=== PATIENT | male | born 1985 | race Two or more races ===

== ENCOUNTER 2016-12-06 10:51 | Emergency (ER) | payer OTHER ==
--- NOTE | 2016-12-06 11:21 | ER Document Report ---
ED Medical Screen (RME) - General Stated Complaint: FELL/BACK PAIN Notes: patient fell off a two story house c/o shortness of breath, chest pain, left leg pain. A: Airway clear, patient able to talk B: Breathing labored. Bilateral breath sounds clear to auscultation C: Radial pulses are palpable and normal bilaterally D: GCS 15 E: Patient in wheel chair in triage Case discussed with charge and sent directly to [facility] bed for trauma evaluation I have greeted and performed a rapid initial assessment of this patient. A comprehensive ED assessment and evaluation of the patient, analysis of test results and completion of the medical decision making process will be conducted by additional ED providers. TRAVEL OUTSIDE OF THE [place] IN LAST 30 DAYS: No - Related Data Allergies/Adverse Reactions: No Known Allergies Allergy (Verified 12/06/16 11:15)
--- NOTE | 2016-12-06 11:40 | ER Document Report ---
ED General - General Chief Complaint: Fall Injury Stated Complaint: FELL/BACK PAIN Time seen by provider: 11:30 Mode of Arrival: Wheelchair Information source: Patient Notes: 31-year-old male states he was working on a roof and slipped. Patient says he was between 30 and 40 feet high when went off the roof and says he landed on both feet and then fell for. He denies a loss of consciousness. He reports this occurred within an hour of arrival. Last meal was about 7 AM. He reports he does not recently been ill with anything. He currently complains primarily of pain in the left ankle and foot and also complains about some sharp pain in the midsternal region with movement or deep breathing. He denies headache, neck pain, back pain, abdominal pain, numbness weakness to any extremity, pain upper extremities, or pain of the right lower extremity. He denies shortness of breath other than pain from deep breathing, and denies any nausea or vomiting. Physical Exam: General: Alert, appears well. HEENT: Normocephalic. Atraumatic. PERRLA. Extraocular movements intact. No otorhinorrhea bite normal Oropharynx clear. Neck: Supple. Non-tender. Full range of motion without discomfort no bony deformities palpated Respiratory: No respiratory distress. Clear and equal breath sounds bilaterally. Midsternal region is tender to palpation no lesions are noted he also has discomfort palpation over the left lower chest anteriorly which also reproduces patient's pain Cardiovascular: Regular rate and rhythm. Abdominal: Normal Inspection. Soft, non-tender. No distension. Normal Bowel Sounds. No guarding rebound rigidity Back: Non-tender. No deformity or step off. Bony deformities palpated Extremities: Moves all four extremities. Upper extremities: Normal inspection. Non-tender. Normal color. Normal ROM. Normal temperature. Lower extremities: Right lower extremity has full range of motion without discomfort or abnormality Left lower extremity has tenderness to palpation diffusely to the left ankle and foot and the lower tib-fib region. Point of maximal tenderness is the medial malleolus and the anterior medial ankle Patient has brisk capillary refill to all toes and dorsalis pedis and posterior tibial pulses. Patient has good range of motion without discomfort at the knee and hip on the left. Neurological: Cranial nerves III-XII grossly intact bilaterally. Strength 5/5 throughout with the exception of the area of the left ankle and foot which can' t be assessed due to pain. Sensation intact to light touch. Normal cognition. AAOx4. Normal speech. Psychological: Normal affect. Normal Mood. Skin: Warm. Dry. Normal color. TRAVEL OUTSIDE OF THE [place] IN LAST 30 DAYS: No - Related Data Allergies/Adverse Reactions: No Known Allergies Allergy (Verified 12/06/16 11:15) Past Medical History - Social History Smoking Status: Current Every Day Smoker Chew tobacco use (# tins/day): No Frequency of alcohol use: None Drug Abuse: None Family History: Hyperlipidemia, Malignancy Patient has suicidal ideation: No Patient has homicidal ideation: No Renal/ Medical History: Denies: Hx Peritoneal Dialysis Review of Systems - Review of Systems Constitutional: denies: Chills, Fever EENT: denies: Ear pain, Throat pain Cardiovascular: See HPI Respiratory: Short of breath. denies: Cough Gastrointestinal: denies: Abdominal pain, Nausea, Vomiting Genitourinary: denies: Burning, Dysuria Musculoskeletal: See HPI Skin: denies: Rash Hematologic/Lymphatic: denies: Swollen glands Neurological/Psychological: denies: Weakness, Numbness Physical Exam - Vital signs Vitals: Temp Pulse Resp BP Pulse Ox 98.1 F 94 20 144/71 H 96 12/06/16 11:49 12/06/16 11:49 12/06/16 11:49 12/06/16 11:49 12/06/16 11:49 Course - Re-evaluation Re-evalutation: 12/06/16 13:17 Patient is remained stable during stay in the department with no worsening shortness of breath or chest pain. Did not identify sternal fracture or pneumothorax on his x-ray. Cortical irregularity on the distal tibia noted on the ankle films I think corresponds to the patient's maximal tenderness and a believe does represent an acute fracture. He'll be placed in posterior splint and crutches and referred to orthopedics for follow-up. Reexamination of the left lower extremity again shows strong peripheral pulses brisk capillary refill no swelling tenseness or ecchymosis in the left lower extremity to suggest compartment syndrome. 12/06/16 13:31 I do note that the patient's stable vital signs and lack of any definite injury other than the ankle fracture suggests that the patient is overestimating the height from which he fell - Vital Signs Vital signs: Temp Pulse Resp BP Pulse Ox 98.1 F 94 20 144/71 H 96 12/06/16 11:49 12/06/16 11:49 12/06/16 11:49 12/06/16 11:49 12/06/16 11:49 - Diagnostic Test Radiology reviewed: Image reviewed, Reports reviewed Discharge - Discharge Clinical Impression: Ankle fracture Qualifiers: Encounter type: initial encounter Fracture type: closed Laterality: left Qualified Code(s): S82.892A - Other fracture of left lower leg, initial encounter for closed fracture Condition: Stable Disposition: HOME, SELF-CARE Additional Instructions: Fracture You have a fracture. The typical broken bone requires only protection and sufficient time for healing. "Setting" is necessary only if the bones are crooked or out of position. The physician will re-assess you periodically to make certain that the bone heals without complications. It's important that you follow the instructions given you. The initial treatment is immobilization, elevation of the injury, and cold packs. Not all fractures require a cast. Depending on the location and type of fracture, immobilization may consist of a splint, cast, sling, bulky dressing , or simply rest. The length of time required for healing depends on the location and type of fracture, and on the age of the patient. The treatment plan the physician has outlined for you is customized to your fracture and health condition. Call the doctor or return at once if pain becomes severe, or if severe swelling or numbness develop. Prescriptions: Oxycodone HCl/Acetaminophen [Percocet 5-325 mg Tablet] 1 tab PO Q4H PRN #30 tablet PRN Reason: Severe Pain Referrals: PAUL ZAPATA MD [ACTIVE STAFF] - Follow up in 3-5 days
[2016-12-06] MEDS ORDERED: MORPHINE SULFATE 10 MG/ML INJ IV ONE (12:58)
[2016-12-06 14:08] VITALS: BP 133/72
== END 2016-12-06 14:08 | disposition home or self-care (01) ==
LOC: ER 10:51
DX: S82.892A Other fracture of left lower leg, initial encounter for closed fracture (principal); R07.89 Other chest pain; F17.200 Nicotine dependence, unspecified, uncomplicated; W13.2XXA Fall from, out of or through roof, initial encounter; Y93.H3 Activity, building and construction; Y99.0 Civilian activity done for income or pay
CPT/HCPCS: 99284; 96374; 73610; 71020; 73630; 73590; J2270

== ENCOUNTER 2016-12-10 10:29 | Emergency (ER) | payer OTHER ==
[2016-12-10 10:38] VITALS: BP 150/75
--- NOTE | 2016-12-10 11:20 | ER Document Report ---
ED Medical Screen (RME) - General Stated Complaint: ANKLE PAIN Time seen by provider: 11:20 Mode of Arrival: Ambulatory Information source: Patient Notes: 31-year-old male complaining of left ankle pain. He is using crutches. He came last and it is fractured. Ran out of pain medicine because it hurts so bad and he can't see the specialty doctor until Saturday at 3 PM. I have greeted and performed a rapid initial assessment of this patient. A comprehensive ED assessment, evaluation of the patient, analysis of test results , and completion of the medical decision making process will be contacted by additional ED providers. TRAVEL OUTSIDE OF THE [place] IN LAST 30 DAYS: No - Related Data Allergies/Adverse Reactions: No Known Allergies Allergy (Verified 12/10/16 11:20) Past Medical History Renal/ Medical History: Denies: Hx Peritoneal Dialysis Physical Exam - Vital signs Vitals: Temp Pulse Resp BP Pulse Ox 97.7 F 89 18 150/75 H 100 12/10/16 10:37 12/10/16 10:37 12/10/16 10:37 12/10/16 10:37 12/10/16 10:37 Course - Vital Signs Vital signs: Temp Pulse Resp BP Pulse Ox 97.7 F 89 18 150/75 H 100 12/10/16 10:37 12/10/16 10:37 12/10/16 10:37 12/10/16 10:37 12/10/16 10:37
[2016-12-10] MEDS ORDERED: OXYCODONE-ACETAMINOPHEN 5-325 MG TABLET PO ONE (11:23)
[2016-12-10] MEDS ORDERED: ONDANSETRON 4 MG TAB.RAPDIS PO ONE (11:24)
--- NOTE | 2016-12-10 12:26 | ER Document Report ---
ED General - General Chief Complaint: Ankle Pain Stated Complaint: ANKLE PAIN Time seen by provider: 12:21 Mode of Arrival: Ambulatory Information source: Patient Notes: 31-year-old male status post recent left ankle fracture after fall has an appointment with orthopedics in 2 days but has run out of pain medicine. Patient had a fall off a roof and on his initial presentation was having anterior chest pain but he reports that pain is better now does have diffuse aches and pains in various locations he says since the fall and occasional nausea but no vomiting. He denies shortness of breath, fever, chills and denies numbness weakness to any extremity. He has intended pain in the left ankle and the side of his initial discomfort but is not having pain elsewhere in the left lower extremity. Physical Exam: General: Alert, appears well. HEENT: Normocephalic. Atraumatic. PERRLA. Extraocular movements intact. Oropharynx clear. Neck: Supple. Good range of motion without discomfort no deformities palpated Respiratory: No respiratory distress. Clear and equal breath sounds bilaterally. Not tender to palpation Cardiovascular: Regular rate and rhythm. Abdominal: Normal Inspection. Soft, non-tender. No distension. Normal Bowel Sounds. Back: Non-tender. No deformity or step off. Patient has brisk capillary refill toes on the left with palpable dorsalis pedis and posterior tibial pulses to. Continues to have pain to the anterior and medial portions of the left ankle. Edematous wrist good range of motion at the knee and hip. Other extremities have good range of motion without discomfort Neurological: Speech clear mentation normal moves all 4 extremities well Psychological: Normal affect. Normal Mood. Skin: Warm. Dry. Normal color. TRAVEL OUTSIDE OF THE [place] IN LAST 30 DAYS: No - Related Data Allergies/Adverse Reactions: No Known Allergies Allergy (Verified 12/10/16 11:20) Past Medical History - General Information source: Patient - Social History Smoking Status: Current Every Day Smoker Chew tobacco use (# tins/day): Yes Family History: Hyperlipidemia, Malignancy Patient has suicidal ideation: No Patient has homicidal ideation: No Renal/ Medical History: Denies: Hx Peritoneal Dialysis Review of Systems - Review of Systems Constitutional: denies: Chills, Fever EENT: denies: Ear pain, Throat pain Cardiovascular: See HPI Respiratory: denies: Cough, Short of breath Gastrointestinal: Nausea. denies: Abdominal pain Genitourinary: denies: Burning Musculoskeletal: denies: Back pain Hematologic/Lymphatic: denies: Swollen glands Neurological/Psychological: denies: Weakness, Numbness Physical Exam - Vital signs Vitals: Temp Pulse Resp BP Pulse Ox 97.7 F 89 18 150/75 H 100 12/10/16 10:37 12/10/16 10:37 12/10/16 10:37 12/10/16 10:37 12/10/16 10:37 Course - Re-evaluation Re-evalutation: 12/10/16 12:23 Patient be given refill for Percocet to cover the next 2 days until he sees his orthopedist. He will continue with use of crutches and splint - Vital Signs Vital signs: Temp Pulse Resp BP Pulse Ox 97.7 F 89 18 150/75 H 100 12/10/16 10:37 12/10/16 10:37 12/10/16 10:37 12/10/16 10:37 12/10/16 10:37 Discharge - Discharge Clinical Impression: Closed left ankle fracture Qualifiers: Encounter type: subsequent encounter Fracture healing: with routine healing Qualified Code(s): S82.892D - Other fracture of left lower leg, subsequent encounter for closed fracture with routine healing Condition: Stable Disposition: HOME, SELF-CARE Additional Instructions: Fracture You have a fracture. The typical broken bone requires only protection and sufficient time for healing. "Setting" is necessary only if the bones are crooked or out of position. The physician will re-assess you periodically to make certain that the bone heals without complications. It's important that you follow the instructions given you. The initial treatment is immobilization, elevation of the injury, and cold packs. Not all fractures require a cast. Depending on the location and type of fracture, immobilization may consist of a splint, cast, sling, bulky dressing , or simply rest. The length of time required for healing depends on the location and type of fracture, and on the age of the patient. The treatment plan the physician has outlined for you is customized to your fracture and health condition. Call the doctor or return at once if pain becomes severe, or if severe swelling or numbness develop. Prescriptions: Oxycodone HCl/Acetaminophen [Percocet 5-325 mg Tablet] 1 tab PO Q6H PRN #15 tablet PRN Reason: For Pain Referrals: PAUL ZAPATA MD [ACTIVE STAFF] - 12/12/16
== END 2016-12-10 12:49 | disposition home or self-care (01) ==
LOC: ER 10:29
DX: S82.892D Other fracture of left lower leg, subsequent encounter for closed fracture with routine healing (principal); W13.2XXD Fall from, out of or through roof, subsequent encounter; M25.572 Pain in left ankle and joints of left foot; R11.0 Nausea; F17.200 Nicotine dependence, unspecified, uncomplicated
CPT/HCPCS: 99281; S0119

== ENCOUNTER 2017-04-03 12:27 | Emergency (ER) | payer MEDICAID, OTHER ==
--- NOTE | 2017-04-03 14:07 | ER Document Report ---
HPI - HPI Pain Level: 4 Context: Patient is a 31yo male who presents to the ED c/o chronic left ankle pain since his fracture in Nov 2016. The pain does not radiate. Pt states that he was in a cast for 8 weeks and then had physical therapy thereafter. Pt states that the physical therapy was helping, but he ran out of allowed visits with his worker's comp. Pt states that he has been having the same chronic pain in his left ankle since then (1-2mos) without any new injury. Pt states that ambulation makes his pain worse. He has not had any otc meds for his symptoms otherwise. Pt does not have a PCM. Daily smoker. Pt is no longer seeing ortho at this time. No other concerns or complaints. No fever, URI symptoms, CP, sob , dyspnea, abd pain, n/v, dysuria, numbness/tingling, or rash. - ROS Notes: REVIEW OF SYSTEMS: CONSTITUTIONAL : Denies fever, chills, or sweats. Denies recent illness. EENT: Denies eye, ear, throat, or mouth pain or symptoms. Denies nasal or sinus congestion or discharge. Denies throat, tongue, or mouth swelling or difficulty swallowing. CARDIOVASCULAR: Denies chest pain. Denies palpitations or racing or irregular heart beat. Denies ankle edema. RESPIRATORY: Denies cough, cold, or chest congestion. Denies shortness of breath, difficulty breathing, or wheezing. GASTROINTESTINAL: Denies abdominal pain or distention. Denies nausea, vomiting , or diarrhea. Denies blood in vomitus, stools, or per rectum. Denies black, tarry stools. Denies constipation. GENITOURINARY: Denies difficulty urinating, painful urination, burning, frequency, blood in urine, or discharge. MUSCULOSKELETAL: see hpi. SKIN: Denies rash, lesions or sores. HEMATOLOGIC : Denies easy bruising or bleeding. LYMPHATIC: Denies swollen, enlarged glands. Neuro: see hpi ALL OTHER SYSTEMS REVIEWED AND NEGATIVE. Dictation was performed using [email or web address] voice recognition software - CARDIOVASCULAR Cardiovascular: DENIES: Chest pain - DERM Skin Color: Normal Past Medical History - Social History Smoking Status: Current Every Day Smoker Chew tobacco use (# tins/day): No Frequency of alcohol use: Occasional Drug Abuse: None Family History: Hyperlipidemia, Malignancy Patient has suicidal ideation: No Patient has homicidal ideation: No Renal/ Medical History: Denies: Hx Peritoneal Dialysis Vertical Provider Document - CONSTITUTIONAL Notes: PHYSICAL EXAMINATION: GENERAL: Well-appearing, well-nourished and in no acute distress. LUNGS: Breath sounds clear to auscultation bilaterally and equal. No wheezes rales or rhonchi. HEART: Regular rate and rhythm without murmurs, rubs, gallops. ABDOMEN: Soft, nontender, nondistended abdomen. No guarding, no rebound. No masses appreciated. Normal bowel sounds present. No CVA tenderness bilaterally. Musculoskeletal: Lt ankle: No erythema, swelling, ecchymosis, abrasion, laceration, or deformity noted. FROM to passive/active. Strength 5+/5. Ligamentous stable. + tenderness to palpation near the ATFL and the CFL. Pt able to weight-bear. No malleolar tenderness. Achilles intact. No back tenderness. SLR neg b/l. Extremities: No cyanosis, clubbing, or edema b/l. Peripheral pulses 2+ b/l LE' s. Capillary refill less than 3 seconds. Robson negative. NEUROLOGICAL: Normal speech, + favors left ankle. Normal sensory, motor exams PSYCH: Normal mood, normal affect. SKIN: Warm, Dry, normal turgor, no rashes or lesions noted. - INFECTION CONTROL TRAVEL OUTSIDE OF THE [place] IN LAST 30 DAYS: No - RESPIRATORY O2 Sat by Pulse Oximetry: 99 Course - Re-evaluation Re-evalutation: Patient is an afebrile, well-hydrated, 31yo male who presents with ongoing chronic left ankle pain. Vitals stable. PE unremarkable for any red flags. Pt states he had a neg XR 1mo ago without any re-injury or changes in the pain since then. Thoroughly reviewed that the ED cannot provide ongoing pain management for his discomfort. Advised that he have a recheck with his Ortho provider (Eliana), establish with a PCM to coordinate ongoing care, and consider consult with a casino gaming worker. I will give him a few days worth of Tramadol to take PRN pain. Recommend NSAID's/tylenol. Rest, Ice, Compression, Elevation Use splint as directed Tylenol/ibuprofen as needed Light stretches daily Strength exercises as able Moist heat and massage may help Return to the ED with any worsening pain, inability to ambulate, fever, bruising , red streaks, abscess, limb numbness/tingling, Chest pain, SOB. Patient in agreement with plan. 04/03/17 14:07 - Vital Signs Vital signs: Temp Pulse Resp BP Pulse Ox 97.7 F 70 16 125/72 99 04/03/17 13:03 04/03/17 13:03 04/03/17 13:03 04/03/17 13:03 04/03/17 13:03 Discharge - Discharge Clinical Impression: Ankle pain Qualifiers: Chronicity: chronic Laterality: left Qualified Code(s): M25.572 - Pain in left ankle and joints of left foot; G89.29 - Other chronic pain Condition: Stable Disposition: HOME, SELF-CARE Instructions: Brandon Wrap ([facility]), Ice & Elevation ([facility]), Oral Narcotic Medication ( [facility]) Additional Instructions: Rest, Ice, Compression, Elevation Use splint as directed Tylenol/ibuprofen as needed Light stretches daily Strength exercises as able Moist heat and massage may help Call your Orthopedic provider for a recheck. Establish care with a Primary Care Doctor for management of ongoing chronic issues Return to the ED with any worsening pain, inability to ambulate, fever, bruising , red streaks, abscess, limb numbness/tingling, Chest pain, SOB. Prescriptions: Tramadol HCl 50 mg PO BID PRN #10 tablet PRN Reason:
[2017-04-03 14:34] VITALS: BP 120/70
== END 2017-04-03 14:34 | disposition home or self-care (01) ==
LOC: ER 12:27
DX: G89.29 Other chronic pain (principal); M25.572 Pain in left ankle and joints of left foot; S82.892S Other fracture of left lower leg, sequela; W19.XXXS Unspecified fall, sequela; F17.200 Nicotine dependence, unspecified, uncomplicated
CPT/HCPCS: 99283

== ENCOUNTER 2018-12-09 11:03 | Emergency (ER) | payer SELFPAY ==
[2018-12-09 11:10] VITALS: BP 120/74
[2018-12-09] MEDS ORDERED: KETOROLAC TROMETHAMINE 60 MG/2 ML SDV IM ONE (11:33)
[2018-12-09] MEDS ORDERED: LIDOCAINE 2% VISCOUS SOLN 20 ML UDCUP PO ONE (11:33)
--- NOTE | 2018-12-09 11:41 | ER Document Report ---
ED Oral Problem - General Chief Complaint: Toothache Stated Complaint: TOOTH PAIN Time Seen by Provider: 12/09/18 11:27 Mode of Arrival: Ambulatory Information source: Patient Notes: 33-year-old male presents to ED for complaint of dental pain to the right lower jaw with pain radiating to the ear. He states he went to the dentist last week and was given antibiotics and Tylenol 3. He states he drank all the Tylenol 3 and is taking the antibiotics and he has an appointment in December for having 5 teeth removed. He states he is having a lot of pain because he is not had anything for pain in 2 days. He states he took some aspirin yesterday but nothing at all today. TRAVEL OUTSIDE OF THE [place] IN LAST 30 DAYS: No - HPI Patient complains to provider of: Jaw pain, Toothache Onset: Other - Chronic Onset: Gradual Quality of pain: Sharp, Throbbing Severity: Severe Pain Level: 5 Associated symptoms: Toothache Worsened by: Cold Relieved by: Nothing Similar symptoms previously: Yes Recently seen / treated by doctor/dentist: Yes - Related Data Allergies/Adverse Reactions: No Known Allergies Allergy (Verified 12/09/18 11:05) Past Medical History - General Information source: Patient - Social History Smoking Status: Current Every Day Smoker Cigarette use (# per day): Yes - 3 cigarettes Chew tobacco use (# tins/day): No Smoking Education Provided: Yes Frequency of alcohol use: Rare Drug Abuse: None Lives with: Family Family History: Hyperlipidemia, Malignancy Patient has suicidal ideation: No Patient has homicidal ideation: No - Past Medical History Cardiac Medical History: Reports: None Pulmonary Medical History: Reports: None EENT Medical History: Reports: None Neurological Medical History: Reports: None Endocrine Medical History: Reports: None Renal/ Medical History: Reports: None Malignancy Medical History: Reports None GI Medical History: Reports: None Musculoskeletal Medical History: Reports Hx Musculoskeletal Trauma Skin Medical History: Reports None Psychiatric Medical History: Reports: None Traumatic Medical History: Reports: Hx Fractures Infectious Medical History: Reports: None Surgical Hx: Negative Past Surgical History: Reports: None Review of Systems - Review of Systems Constitutional: No symptoms reported EENT: Mouth swelling, Dental problem Cardiovascular: No symptoms reported Respiratory: No symptoms reported Gastrointestinal: No symptoms reported Genitourinary: No symptoms reported Male Genitourinary: No symptoms reported Musculoskeletal: No symptoms reported Skin: No symptoms reported Hematologic/Lymphatic: No symptoms reported Neurological/Psychological: No symptoms reported -: Yes All other systems reviewed and negative Physical Exam - Vital signs Vitals: Temp Pulse Resp BP Pulse Ox 97.5 F 80 14 120/74 100 12/09/18 11:08 12/09/18 11:08 12/09/18 11:08 12/09/18 11:08 12/09/18 11:08 Interpretation: Normal - General General appearance: Appears well, Alert - HEENT Head: Normocephalic, Atraumatic Eyes: Normal Pupils: PERRL Ears: Normal External canal: Normal Tympanic membrane: Normal Sinus: Normal Mouth/Lips: Caries Mucous membranes: Normal Teeth diagram: 1 - Worst pain in these 2 teeth he has 5 cavities that are supposed to be removed in December some of the upper some on the lower is taken his antibiotics as instructed Pharynx: Normal Neck: Anterior cervical chain - Respiratory Respiratory status: No respiratory distress Chest status: Nontender Breath sounds: Normal Chest palpation: Normal - Cardiovascular Rhythm: Regular Heart sounds: Normal auscultation Murmur: No - Abdominal Inspection: Normal Distension: No distension Bowel sounds: Normal Tenderness: Nontender Organomegaly: No organomegaly - Back Back: Normal, Nontender - Extremities General upper extremity: Normal inspection, Nontender, Normal color, Normal ROM, Normal temperature General lower extremity: Normal inspection, Nontender, Normal color, Normal ROM, Normal temperature, Normal weight bearing. No: Robson's sign - Neurological Neuro grossly intact: Yes Cognition: Normal Orientation: AAOx4 Jesenia Coma Scale Eye Opening: Spontaneous Bryan Coma Scale Verbal: Oriented Jesenia Coma Scale Motor: Obeys Commands Bryan Coma Scale Total: 15 Speech: Normal Motor strength normal: LUE, RUE, LLE, RLE Sensory: Normal - Psychological Associated symptoms: Normal affect, Normal mood - Skin Skin Temperature: Warm Skin Moisture: Dry Skin Color: Normal Course - Re-evaluation Re-evalutation: 12/09/18 11:38 Patient was given a syringe of viscous lidocaine for pain as well as a Toradol injection at this time. Patient was instructed to use ibuprofen in the morning and night for his dental pain and to follow-up with his dentist as instructed. Patient was discharged home. Presentation is most consistent with likely an infected tooth. Airway is patent. Vitals within normal limits. Patient is able swallow without any difficulty. There is no significant facial swelling. No evidence of Devonte angina, apical abscess, or airway obstruction. Patient will be started on a ntibiotics. I've instructed to follow-up with dentistry as earliest ability for definitive management. At this time will discharge with return precautions and follow-up recommendations. Verbal discharge instructions given a the bedside and opportunity for questions given. Medication warnings reviewed. Patient is in agreement with this plan and has verbalized understanding of return precautions and the need for primary care follow-up in the next 24-72 hours. - Vital Signs Vital signs: Temp Pulse Resp BP Pulse Ox 97.5 F 80 14 120/74 100 12/09/18 11:08 12/09/18 11:08 12/09/18 11:08 12/09/18 11:08 12/09/18 11:08 Discharge - Discharge Clinical Impression: Pain due to dental caries Condition: Stable Disposition: HOME, SELF-CARE Instructions: Family Physicians / Practices Additional Instructions: TOOTHACHE: Your pain is due to dental decay. The tooth must be repaired in order for you to feel better. You will, therefore, be referred to a dentist. We do not have dentists on the staff at [facility]. Severe swelling or drainage around a tooth usually means a dental abscess. This also requires evaluation and treatment by the dentist, but antibiotics may be prescribed while awaiting dental treatment. You should be rechecked immediately if you develop major swelling of the face, increasing pain, a lump in the jaw or gums, headache, difficulty swallowing, or fever. Toradol Injection You have been given an injection of ketorolac tromethamine (Toradol). This is an excellent, safe drug for pain control. It also has potent antiinflammatory action. You should have significant pain relief within about one hour. Toradol is not addicting and is non-sedating. It does not interfere with driving or work. Call or return if you develop itching, hives, shortness of breath, or rash. Ibuprofen You can use for [id number] ibuprofen in the morning and another 4 at nighttime before bed to help you with your pain please make sure you take these on a full stomach. Do not take any ibuprofen for at least 8 hours from when you received your Toradol injection Ibuprofen is an excellent, safe drug for pain control. In addition, it has potent antiinflammatory effects which are beneficial, especially in the treatment of injuries, arthritis, or tendonitis. It's best to take ibuprofen with food. Persons with ulcer disease or allergy to aspirin should notify their physician of this before taking ibuprofen. Take the medication exactly as prescribed. Don't take additional doses unless instructed to do so by your doctor. If you develop wheezing, shortness of breath, hives, faintness, stomach pain, vomiting, or dark black stools, return for re-evaluation at once. Again given a syringe of viscous lidocaine. This is a lidocaine that she can place on your finger and applied to the dental pain. Apply it to the teeth that are hurting in the gums surrounding those teeth. This will decrease her pain. You can do this every 3-4 hours. FOLLOW-UP CARE: You have been referred for follow-up care to the dentists listed below. Call the dentists office for an appointment as you were instructed or within the next two days. If you experience worsening or a significant change in your symptoms, notify the physician immediately or return to the Emergency Department at any time for re-evaluation. [facility] [address] [place], [place] Saturday mornings, by appointment [facility] [address] [place] [address] [facility] [address] [facility] [address] [facility] (4th) [facility] [address] [facility] [email or web address] [address] [place] [address] Saturday- 8:00am to 5:00 pm Will see patients from other [facility]. Charges based on income and family size and accepts Medicare, Medicaid, and Insurances Will pull molars [facility] Student [facility] [id number] Hours of Operation 8:00 am - 4:30 pm weekdays The following dental offices accept Medicaid: [facility] Dr. Johnson Dr. Albert Dr. Fitzpatrick Dr. Pope Julián Landers, Annelise, and [place] oral surgery Dr. De La Rosa ([place]) Dr. Campos ([place]) [facility] Drs. Cat and Conrado ([place]) Dr. Rust ([place]) [facility] Dr. Aguilar ([place]) Drs. Bledsoe and ([place]) Medicaid Care Line Forms: Return to Work
== END 2018-12-09 11:58 | disposition home or self-care (01) ==
LOC: ER 11:03
DX: K02.9 Dental caries, unspecified (principal); K08.89 Other specified disorders of teeth and supporting structures; F17.210 Nicotine dependence, cigarettes, uncomplicated
CPT/HCPCS: 99282; 96372; J1885; J3490

== ENCOUNTER 2018-12-16 10:12 | Emergency (ER) | payer SELFPAY ==
[2018-12-16 10:25] VITALS: BP 110/77
[2018-12-16] MEDS ORDERED: CLINDAMYCIN HCL 150 MG CAPSULE PO ONE (10:46)
[2018-12-16] MEDS ORDERED: HYDROCODONE/ACETAMINOPHEN 5-325 MG TABLET PO ONE (10:46)
[2018-12-16] MEDS ORDERED: LIDOCAINE 1% INJ-PF (10 MG/ML) 30 ML SDV INJ ONE (10:48)
[2018-12-16] MEDS ORDERED: BUPIVACAINE HCL 0.5 % INJ/PF 30 ML SDV INJ ONE (10:48)
--- NOTE | 2018-12-16 10:53 | ER Document Report ---
ED Oral Problem - General Chief Complaint: Toothache Stated Complaint: TOOTHACHE Time Seen by Provider: 12/16/18 10:36 Mode of Arrival: Ambulatory Information source: Patient Notes: 33-year-old male presented to ED for complaint of dental pain to tooth #32, 31, 1, and several of the teeth but the worse pain is in tooth #32. He states he was supposed to get it pulled about a month ago but is a had insurance issues but now he supposed to get pulled in December. He states he cannot stand this pain. He was seen about a week ago for the same pain given viscous lidocaine and was on penicillin. He states the pain is getting worse. He does have a large portion of the tooth #32 medicine. Patient has agreed to try clindamycin and a dental block at this time. He we have discussed using dental putty to cover the nerve until he can get to the dentist. TRAVEL OUTSIDE OF THE [place] IN LAST 30 DAYS: No - HPI Patient complains to provider of: Toothache Onset: Other Onset: Gradual - More than a month Quality of pain: Sharp, Throbbing Severity: Severe Pain Level: 5 Associated symptoms: Toothache Worsened by: Cold Similar symptoms previously: Yes Recently seen / treated by doctor/dentist: Yes - Related Data Allergies/Adverse Reactions: No Known Allergies Allergy (Verified 12/09/18 11:05) Past Medical History - General Information source: Patient - Social History Smoking Status: Current Every Day Smoker Cigarette use (# per day): Yes - 3 cig Chew tobacco use (# tins/day): No Smoking Education Provided: Yes Frequency of alcohol use: Social Drug Abuse: Marijuana Lives with: Family Family History: Hyperlipidemia, Malignancy Patient has suicidal ideation: No Patient has homicidal ideation: No - Past Medical History Cardiac Medical History: Reports: None Pulmonary Medical History: Reports: None EENT Medical History: Reports: Other - Dental pain Neurological Medical History: Reports: None Endocrine Medical History: Reports: None Renal/ Medical History: Reports: None Malignancy Medical History: Reports None GI Medical History: Reports: None Musculoskeletal Medical History: Reports Hx Musculoskeletal Trauma Skin Medical History: Reports None Psychiatric Medical History: Reports: None Traumatic Medical History: Reports: Hx Fractures Infectious Medical History: Reports: None Surgical Hx: Negative Past Surgical History: Reports: None Review of Systems - Review of Systems Constitutional: No symptoms reported EENT: No symptoms reported, Mouth pain, Dental problem Cardiovascular: No symptoms reported Respiratory: No symptoms reported Gastrointestinal: No symptoms reported Genitourinary: No symptoms reported Male Genitourinary: No symptoms reported Musculoskeletal: No symptoms reported Skin: No symptoms reported Hematologic/Lymphatic: No symptoms reported Neurological/Psychological: No symptoms reported -: Yes All other systems reviewed and negative Physical Exam - Vital signs Vitals: Temp Pulse Resp BP Pulse Ox 98.0 F 90 14 110/77 96 12/16/18 10:24 12/16/18 10:24 12/16/18 10:24 12/16/18 10:24 12/16/18 10:24 Interpretation: Normal - General General appearance: Appears well, Alert - HEENT Head: Normocephalic, Atraumatic Eyes: Normal Pupils: PERRL Ears: Normal External canal: Normal Tympanic membrane: Normal Sinus: Normal Nasal: Normal Mouth/Lips: Caries Mucous membranes: Normal Teeth diagram: 1 - Worst pain is to tooth #32 large portion of the tooth missing Pharynx: Normal Neck: Normal - Respiratory Respiratory status: No respiratory distress Chest status: Nontender Breath sounds: Normal Chest palpation: Normal - Cardiovascular Rhythm: Regular Heart sounds: Normal auscultation Murmur: No - Abdominal Inspection: Normal Distension: No distension Bowel sounds: Normal Tenderness: Nontender Organomegaly: No organomegaly - Back Back: Normal, Nontender - Extremities General upper extremity: Normal inspection, Nontender, Normal color, Normal ROM, Normal temperature General lower extremity: Normal inspection, Nontender, Normal color, Normal ROM, Normal temperature, Normal weight bearing. No: Robson's sign - Neurological Neuro grossly intact: Yes Cognition: Normal Orientation: AAOx4 Jesenia Coma Scale Eye Opening: Spontaneous Jesenia Coma Scale Verbal: Oriented Mackey Coma Scale Motor: Obeys Commands Jesenia Coma Scale Total: 15 Speech: Normal Motor strength normal: LUE, RUE, LLE, RLE Sensory: Normal - Psychological Associated symptoms: Normal affect, Normal mood - Skin Skin Temperature: Warm Skin Moisture: Dry Skin Color: Normal Course - Re-evaluation Re-evalutation: 02/19/19 21:53 Patient was given a dental block with lidocaine 1% 4 cc and bupivacaine 0.5% 1 cc into the right inferior alveolaer face. Patient states he had much improvement from the pain shortly after the injection. Patient was started on clindamycin and discharged home. Patient was instructed that he needed to follow-up with a dentist to get definitive treatment for this dental pain. Presentation is most consistent with likely an infected tooth. Airway is patent. Vitals within normal limits. Patient is able swallow without any difficulty. There is no significant facial swelling. No evidence of [place] angina, apical abscess, or airway obstruction. Patient will be started on antibiotics. I've instructed to follow-up with dentistry as earliest ability for definitive management. At this time will discharge with return precautions and follow-up recommendations. Verbal discharge instructions given a the bedside and opportunity for questions given. Medication warnings reviewed. Patient is in agreement with this plan and has verbalized understanding of return precautions and the need for primary care follow-up in the next 24-72 hours. - Vital Signs Vital signs: Temp Pulse Resp BP Pulse Ox 98.0 F 90 14 110/77 96 12/16/18 10:24 12/16/18 10:24 12/16/18 10:24 12/16/18 10:24 12/16/18 10:24 Discharge - Discharge Clinical Impression: Pain due to dental caries Condition: Stable Disposition: HOME, SELF-CARE Additional Instructions: TOOTHACHE: Your pain is due to dental decay. The tooth must be repaired in order for you to feel better. You will, therefore, be referred to a dentist. We do not have dentists on the staff at [facility]. Severe swelling or drainage around a tooth usually means a dental abscess. This also requires evaluation and treatment by the dentist, but antibiotics may be prescribed while awaiting dental treatment. You should be rechecked immediately if you develop major swelling of the face, increasing pain, a lump in the jaw or gums, headache, difficulty swallowing, or fever. ORAL NARCOTIC MEDICATION: You have been given a prescription for pain control. This medication is a narcotic. It's best taken with food, as nausea can result if taken on an empty stomach. Don't operate machinery or drive within six hours of taking this medication. Do not combine this medicine with alcohol, or with any medication which can cause sedation (such as cold tablets or sleeping pills) unless you get permission from the physician. Narcotics tend to cause constipation. If possible, drink plenty of fluids and eat a diet high in fiber and fruits. Please be aware that prescription narcotics also have the potential for abuse. People become addicted to these medications because of the general sense of wellbeing that they induce. This feeling along with a significant reduction in tension, anxiety, and aggression provides a stimulating seductive quality to these drugs. Once your pain is under control, we encourage you to discard your unused narcotics. CLINDAMYCIN: You have been given a prescription for the antibiotic clindamycin. It is often prescribed for infections in the mouth, such as dental infections or abscesses, and for skin infections due to MRSA. It's important that you take all the medication, unless instructed otherwise by your physician. Failure to complete the entire course can result in relapse of your condition. Common side effects of antibiotics include nausea, intestinal cramping, or diarrhea. Women may develop vaginal yeast infections, and babies can get yeast (thrush) in the mouth following the use of antibiotics. Contact your physician if you develop significant side effects from this medication. Allergy to this antibiotic can result in hives, wheezing, faintness, or itching. If symptoms of allergy occur, stop the medication and call the doctor. You received a dental block that should last through 6-8 hours. The dental block is with lidocaine and Sensorcaine. This should help with your pain for the next several hours. Please try to dry the tooth and put some dental paste in the tooth to prevent air touching this tooth and decrease the pain. FOLLOW-UP CARE: You have been referred for follow-up care to the dentists listed below. Call the dentists office for an appointment as you were instructed or within the next two days. If you experience worsening or a significant change in your symptoms, notify the physician immediately or return to the Emergency Department at any time for re-evaluation. [facility] [address] [place], [place] [facility] [address] [place] [address] [facility] [address] [facility] [place] [id number] [facility] (4th) [facility] [address] [place] [email or web address] [facility] [address] [place] [address] Saturday- 8:00am to 5:00 pm Will see patients from other [facility]. Charges based on income and family size and accepts Medicare, Medicaid, and Insurances Will pull molars [facility] Student [facility] [id number] Hours of Operation 8:00 am - 4:30 pm weekdays The following dental offices accept Medicaid: [facility] Dr. Johnson Dr. Albert Dr. Fitzpatrick Dr. Pope Julián Landers [place], and [place] oral surgery Dr. De La Rosa ([place]) Dr. Campos ([place]) [facility] Drs. Strickland ([place]) Dr. Rust ([place]) [facility] Dr. Aguilar ([place]) Drs. Bledsoe and ([place]) Medicaid Care Line Prescriptions: Hydrocodone/Acetaminophen [[place] 5-325 mg Tablet] 1 tab PO QHS PRN #3 tablet PRN Reason: For Pain Clindamycin HCl 300 mg PO Q6 #28 capsule Forms: Smoking Cessation Education
== END 2018-12-16 11:09 | disposition home or self-care (01) ==
LOC: ER 10:12
DX: K02.9 Dental caries, unspecified (principal); F17.210 Nicotine dependence, cigarettes, uncomplicated
CPT/HCPCS: 99282; J3490 ×2